=== PATIENT | female | born 1995 | race African-American/Black ===

== ENCOUNTER 2019-10-13 12:32 | Emergency (ER) | payer OTHER, MEDICAID ==
[~2019-10-13] VITALS: Ht 172.7 cm; Wt 65.8 kg
[2019-10-13 12:35] VITALS: BP_SYST 119
--- NOTE | 2019-10-13 12:36 | NUR ---
Patient to ER bed H1 to gown for evaluation. Side rails up.
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
--- NOTE | 2019-10-13 12:40 | NUR ---
Dr Flores at bedside examining patient
[2019-10-13] MEDS ORDERED: KETOROLAC TROMETHAMINE 30 MG VIAL IM ONE (13:00)
[2019-10-13 14:13] VITALS: BP_SYST 119
--- NOTE | 2019-10-13 14:13 | NUR ---
Patient given written and verbal discharge instructions and verbalizes understanding. ER MD discussed with patient the results and treatment provided. Patient in stable condition. ID arm band removed. No Rx given. Patient educated on pain management and to follow up with PMD. Pain Scale 2/10 tolerable for patient. Opportunity for questions provided and answered. Medication side effect fact sheet provided.
== END 2019-10-13 14:13 | disposition home or self-care (01) ==
LOC: SED 12:32
DX: S61.102A Unspecified open wound of left thumb with damage to nail, initial encounter (principal); S16.1XXA Strain of muscle, fascia and tendon at neck level, initial encounter; V89.2XXA Person injured in unspecified motor-vehicle accident, traffic, initial encounter; Y93.89 Activity, other specified; Y92.89 Other specified places as the place of occurrence of the external cause; Y99.8 Other external cause status
CPT/HCPCS: 11760; 81025; 96372; 99284; J1885